=== PATIENT | female | born 2000 | race Two or more races ===

== ENCOUNTER 2024-11-30 10:07 | Emergency (ER) | payer MEDICAID ==
[~2024-11-30] VITALS: Ht 157.5 cm; Wt 68.0 kg
[2024-11-30 10:11] VITALS: O2SAT 100
[2024-11-30] MEDS: ACETAMINOPHEN 325MG TABLET PO ONE (10:40)
[2024-11-30] MEDS: METHOCARBAMOL 500MG TABLET PO ONE (10:40)
[2024-11-30] MEDS ORDERED: METH-653 MT (12:54)
[2024-11-30] MEDS ORDERED: IBUP-2029 MT (12:54)
[2024-11-30 13:04] VITALS: BP 129/70; PULSE 61; RESP 20; TEMP 36.8; O2SAT 100
== END 2024-11-30 13:05 | disposition home or self-care (01) ==
LOC: ER 10:07
DX: S09.90XA Unspecified injury of head, initial encounter (principal); M79.652 Pain in left thigh; V89.2XXA Person injured in unspecified motor-vehicle accident, traffic, initial encounter; Y93.89 Activity, other specified; Y92.410 Unspecified street and highway as the place of occurrence of the external cause; Y99.8 Other external cause status
CPT/HCPCS: 70486; 71045; 73552; 99284